=== PATIENT | female | born 1970 | race African-American/Black ===

== ENCOUNTER 2024-06-26 08:23 | Emergency (ER) | payer OTHER, MEDICAID, SELFPAY ==
[2024-06-26 08:25] VITALS: BP 219/100; PULSE 84; RESP 16; TEMP 36.4; O2SAT 100
--- NOTE | 2024-06-26 10:29 | ED_ITS ---
HPI - Female Genitourinary General Chief complaint: Vaginal Bleeding <Ting Gregg PA-C - Last Filed: 06/26/24 10:31> Stated complaint: vag bleeding <Ting Gregg PA-C - Last Filed: 06/26/24 10:31> Time Seen by Provider: 06/26/24 11:20 <Ting Gregg PA-C - Last Filed: 06/26/24 10:31> Focused HPI: 54 y/o F presents to the ED for vaginal bleeding doing this morning. Patient states her periods have been irregular for about 4 months. Her last period was 1 month ago. She states she has had to change her pad/tampon 5 times since bleeding started at 2:00 a.m.. She reports lower abdominal pain. Denies lightheadedness, dizziness, loss of consciousness, chest pain or shortness of breath, dysuria, fever.. She is found to be hypertensive in the ED but denies history of hypertension. Denies symptoms of hypertensive emergency. GENERAL: Well-appearing, well-nourished, and in no acute distress. HEAD: Normocephalic, atraumatic. CHEST: Clear to auscultation. ?No respiratory distress. HEART: Regular rate and rhythm.? NEURO: ?Alert and oriented x3. Patient screened in triage and initial orders placed.? ?Additional care and disposition to be based upon?diagnostic testing and treatment. <Ting Gregg PA-C - Last Filed: 06/26/24 10:31> History of Present Illness HPI Narrative: Agree with the above with the following additions/corrections: [id number] female who is currently perimenopauseal as she will go without menstruating for 3-4 months and then resume. Her OBGyn is here at [facility] but can't recall name. She started with light spotting that became heavy vaginal bleeding last night. Taking Tylenol XS for abdominal pain/cramnping which is 8/10 in severity and occuring intermittently. She had only been noted to be hypertensive previously in the setting of being . Saturating pads/tampons every 3 hours. Sexually active with men (1 partner in past month). No foreign body insertion/sex toys/instrumentation. Denies forceful/vigorous sex. No history of STIs. No dysuria. No prior abnormal PAP smears; last one >2 years ago. <Estephanie Whitt MD - Last Filed: 06/28/24 05:16> Related Data Allergies/Adverse reactions: Allergies Allergy/AdvReac Type Severity Reaction Status Date / Time Penicillins Allergy Mild Jittery Unverified 10/06/08 12:35 hydrocodone Allergy Unknown Verified 10/06/08 12:35 CODEINE (Generic Allergy) Allergy Unknown Y Uncoded 03/10/03 12:32 <Ting Gregg PA-C - Last Filed: 06/26/24 10:31> PMFSH Surgical History Surgical History: Surgical History H/O plastic surgery BBL - [place]ese Butt Lift - gluteal augmentation surgery - approx 2022 in [facility] H/O liposuction of abdomen approx 2022 in [facility] <Ting Gregg PA-C - Last Filed: 06/26/24 10:31> Social History Social History: Social History (Updated 06/28/24 @ 05:09 by Estephanie Whitt MD) Occupation/Education: occupation <Ting Gregg PA-C - Last Filed: 06/26/24 10:31> Exam 2 Const: General: healthy appearing, no acute distress and alert; No diaphoretic or ill appearing <Estephanie Whitt MD - Last Filed: 06/28/24 05:16> Nutritional Appearance: well nourished <Estephanie Whitt MD - Last Filed: 06/28/24 05:16> Orientation/consciousness: patient oriented x3 <Estephanie Whitt MD - Last Filed: 06/28/24 05:16> Limitations: no limitations <Estephanie Whitt MD - Last Filed: 06/28/24 05:16> HENMT: Head: normal to inspection <Estephanie Whitt MD - Last Filed: 06/28/24 05:16> Ears: external ears normal <Estephanie Whitt MD - Last Filed: 06/28/24 05:16> Face and sinus: normal facial exam <MD Devang Odom Last Filed: 06/28/24 05:16> Other: gross auditory acuity intact <Estephanie Whitt MD - Last Filed: 06/28/24 05:16> Eyes: Conjunctivae: conjunctivae normal <MD Devang Odom Last Filed: 06/28/24 05:16> Direct Ophthalmoscopy: no photophobia <Estephanie Whitt MD - Last Filed: 06/28/24 05:16> Neck: Neck: normal visual inspection and no meningeal signs <MD Devang Odom Last Filed: 06/28/24 05:16> Resp: Effort & Inspection: normal respiratory effort, not labored, no retractions, not tachypneic and no use of accessory muscles <MD Devang Odom Last Filed: 06/28/24 05:16> Cardio: Rate: regular rate <Estephanie Whitt MD - Last Filed: 06/28/24 05:16> GI: Inspection: non-distended <Estephanie Whitt MD - Last Filed: 06/28/24 05:16> GI Palp: Yes Soft to palpation, No Tenderness to palpation present (GI), No Guarding due to palpation present (GI) and No Rigid due to palpation < MD Devang Odom Last Filed: 06/28/24 05:16> Other: mild suprapubic TTP <Estephanie Whitt MD - Last Filed: 06/28/24 05:16> : External Female Exam: normal external appearance <MD Devang Odom Last Filed: 06/28/24 05:16> Speculum Exam - Vagina: normal appearance of the vagina and vaginal bleeding (some pooling in fornices) <Estephanie Whitt MD - Last Filed: 06/28/24 05:16> Bimanual exam- vagina & uterus: no cervical motion tenderness <MD Devang Odom Last Filed: 06/28/24 05:16> Bimanual Exam- Adnexa, other: no masses <Estephanie Whitt MD - Last Filed: 06/28/24 05:16> OB/external & speculum: no herpetic lesions <Estephanie Whitt MD - Last Filed: 06/28/24 05:16> Skin: General skin exam: normal color, no jaundice and no pallor < Estephanie Whitt MD - Last Filed: 06/28/24 05:16> Neuro: General: patient oriented x3, moves all extremities and no meningeal signs <Estephanie Whitt MD - Last Filed: 06/28/24 05:16> Speech: normal speech <Estephanie Whitt MD - Last Filed: 06/28/24 05:16> Extrem: General: normal to inspection and no pedal edema <Estephanie Whitt MD - Last Filed: 06/28/24 05:16> Psych: Appearance: grossly normal, well kempt and not disheveled < Estephanie Whitt MD - Last Filed: 06/28/24 05:16> Mental Status: mental status grossly normal <Estephanie Whitt MD - Last Filed: 06/28/24 05:16> Affect: normal affect <Estephanie Whitt MD - Last Filed: 06/28/24 05:16> Attitude: cooperative <Estephanie Whitt MD - Last Filed: 06/28/24 05:16> Course Vital Signs Vital signs: Vital Signs Temperature 97.6 F 06/26/24 08:25 Pulse Rate 84 06/26/24 08:25 Respiratory Rate 16 06/26/24 08:25 Blood Pressure 219/100 H 06/26/24 08:25 Pulse Oximetry 100 06/26/24 08:25 Temperature 97.8 F 06/26/24 14:45 Pulse Rate 61 06/26/24 14:45 Respiratory Rate 16 06/26/24 14:45 Blood Pressure 160/85 H 06/26/24 14:45 Pulse Oximetry 100 06/26/24 14:45 <Ting Gregg PA-C - Last Filed: 06/26/24 10:31> Vital Signs Temperature 97.6 F 06/26/24 08:25 Pulse Rate 84 06/26/24 08:25 Respiratory Rate 16 06/26/24 08:25 Blood Pressure 219/100 H 06/26/24 08:25 Pulse Oximetry 100 06/26/24 08:25 Temperature 97.8 F 06/26/24 14:45 Pulse Rate 61 06/26/24 14:45 Respiratory Rate 16 06/26/24 14:45 Blood Pressure 160/85 H 06/26/24 14:45 Pulse Oximetry 100 06/26/24 14:45 <Estephanie Whitt MD - Last Filed: 06/28/24 05:16> MDM - Female Genitourinary MDM Narrative Medical decision making narrative: Patient presents with abnormal vaginal bleeding. She is perimenopausal. In the emergency department she is afebrile with vital signs notable for hypertension. Patient is not anemic. The patient's bleeding is thought to be secondary to fibroids or other non- emergent cause of abnormal uterine bleeding given benign pelvic exam. Unlikely hemorrhagic cystitis: Urinalysis normal except for blood and blood visualized in vagina on pelvic exam Unlikely thyroid dysfunction; tsh normal Unlikely infection : no recent instrumentation, non toxic appearance, no tenderness on exam or fever Unlikely coagulopathy: plt normal, no other bleeding Unlikely traumatic: no reported history hard sex/instrumentation/foreign body Unlikely PID: 1 sexual partner, no hx STIs; STI testing negative today. Plan discharge home with return precautions and advised follow up with ObGYn. Also advised follow up with PCP for re-check of blood pressure to asses hypertension. <Estephanie Whitt MD - Last Filed: 06/28/24 05:16> Lab Data Attestation: I reviewed the patient's lab results. <Estephanie Whitt MD - Last Filed: 06/28/24 05:16> Result diagrams: 06/26/24 11:11 06/26/24 11:11 <Ting Gregg PA-C - Last Filed: 06/26/24 10:31> Labs: Lab Results 06/26/24 06/26/24 06/26/24 Range/Units 11:11 11:29 13:00 WBC 7.3 (4.5-10.0) K/mm3 RBC 4.68 (4.2-5.4) M/mm3 Hgb 14.2 (12.0-15.0) g/dL Hct 41.9 (37.0-47.0) % MCV 89.5 (80-100) fl MCH 30.3 (26-34) pg MCHC 33.9 (32-36) g/dl RDW 12.0 (11.5-14.5) % Plt Count 215 (150-375) k/mm3 MPV 10.6 H (7.4-10.4) fl Immature Gran % (Auto) 0.4 (0-0.5) % Neut % (Auto) 61.9 (45.5-73.1) % Lymph % (Auto) 29.0 (18.3-44.2) % Letcher % (Auto) 5.0 (2.6-8.5) % Eos % (Auto) 3.4 (0-4.4) % Baso % (Auto) 0.3 (0.2-1.2) % Lymph # (Auto) 2.13 (0.9-3.2) K/mm3 Letcher # (Auto) 0.4 (0.1-0.6) K/mm3 Eos # (Auto) 0.3 (0-0.3) K/mm3 Baso # (Auto) 0.0 (0.0-0.1) K/mm3 Abs Immat Gran (auto) 0.03 (0.00-0.031) K/mm3 Absolute Neuts (auto) 4.5 (1.3-6.7) K/mm3 Absolute Nucleated RBC 0.000 (0.0-0.012) K/mm3 Nucleated RBC % 0.0 (0.0-0.2) % PT 13.3 (11.1-14.7) Seconds INR 1.0 APTT 27.4 (22.3-36.8) Seconds Sodium 139 (137-145) mmol/L Potassium 4.0 (3.4-5.0) mmol/L Chloride 110 H (98-107) mmol/L Carbon Dioxide 27 (22-30) mmol/L Anion Gap 2 L (4-12) mmol/L BUN 11 (7-17) mg/dL Creatinine 0.80 (0.7-1.0) mg/dL Estim Creat Clear Calc 65 ml/min Estimated GFR > 60 (59 - ) Glucose 119 H (65-110) mg/dL Calcium 9.1 (8.4-10.2) mg/dL Total Bilirubin 0.6 (0.2-1.3) mg/dL AST 23 (14-36) U/L ALT 19 (6-35) U/L Alkaline Phosphatase 55 (38-126) U/L Total Protein 8.0 (6.3-8.2) g/dL Albumin 4.4 (3.5-5.1) g/dL TSH 2.120 (0.465-4.680) uIU/mL Urine Color Red H (Yellow) Urine Appearance Clear (Clear) Urine pH 5.5 (5.0-9.0) Ur Specific [place] 1.011 (1.001-1.035) Urine Protein Trace (Negative) mg/dL Urine Glucose (UA) Negative (Negative) mg/dL Urine Ketones Negative (Negative) mg/dL Ur Blood (Man) 3+ H (Negative) Urine Nitrate Negative (Negative) Urine Bilirubin Negative (Negative) Urine Urobilinogen 0.2 (<2.0) mg/dL Leukocyte Esterase Rfl Trace H (Negative) KAI/UL Urine RBC >100 H (0-2) /hpf Urine WBC 6-10 H (0-3) /hpf Ur Squamous Epith Cells None seen (Few) /hpf Urine Bacteria None seen /hpf Urine Casts 0-2 POC Urine HCG, Qual Negative (Negative) C. trachomatis (PCR) Not detected (NOT DETECTE) N. gonorrhoeae (PCR) Not detected (NOT DETECTE) T. vaginalis (PCR) Not detected (NOT DETECTE) <Ting Gregg PA-C - Last Filed: 06/26/24 10:31> Lab Results 06/26/24 06/26/24 06/26/24 Range/Units 11:11 11:29 13:00 WBC 7.3 (4.5-10.0) K/mm3 RBC 4.68 (4.2-5.4) M/mm3 Hgb 14.2 (12.0-15.0) g/dL Hct 41.9 (37.0-47.0) % MCV 89.5 (80-100) fl MCH 30.3 (26-34) pg MCHC 33.9 (32-36) g/dl RDW 12.0 (11.5-14.5) % Plt Count 215 (150-375) k/mm3 MPV 10.6 H (7.4-10.4) fl Immature Gran % (Auto) 0.4 (0-0.5) % Neut % (Auto) 61.9 (45.5-73.1) % Lymph % (Auto) 29.0 (18.3-44.2) % Letcher % (Auto) 5.0 (2.6-8.5) % Eos % (Auto) 3.4 (0-4.4) % Baso % (Auto) 0.3 (0.2-1.2) % Lymph # (Auto) 2.13 (0.9-3.2) K/mm3 Letcher # (Auto) 0.4 (0.1-0.6) K/mm3 Eos # (Auto) 0.3 (0-0.3) K/mm3 Baso # (Auto) 0.0 (0.0-0.1) K/mm3 Abs Immat Gran (auto) 0.03 (0.00-0.031) K/mm3 Absolute Neuts (auto) 4.5 (1.3-6.7) K/mm3 Absolute Nucleated RBC 0.000 (0.0-0.012) K/mm3 Nucleated RBC % 0.0 (0.0-0.2) % PT 13.3 (11.1-14.7) Seconds INR 1.0 APTT 27.4 (22.3-36.8) Seconds Sodium 139 (137-145) mmol/L Potassium 4.0 (3.4-5.0) mmol/L Chloride 110 H (98-107) mmol/L Carbon Dioxide 27 (22-30) mmol/L Anion Gap 2 L (4-12) mmol/L BUN 11 (7-17) mg/dL Creatinine 0.80 (0.7-1.0) mg/dL Estim Creat Clear Calc 65 ml/min Estimated GFR > 60 (59 - ) Glucose 119 H (65-110) mg/dL Calcium 9.1 (8.4-10.2) mg/dL Total Bilirubin 0.6 (0.2-1.3) mg/dL AST 23 (14-36) U/L ALT 19 (6-35) U/L Alkaline Phosphatase 55 (38-126) U/L Total Protein 8.0 (6.3-8.2) g/dL Albumin 4.4 (3.5-5.1) g/dL TSH 2.120 (0.465-4.680) uIU/mL Urine Color Red H (Yellow) Urine Appearance Clear (Clear) Urine pH 5.5 (5.0-9.0) Ur Specific [place] 1.011 (1.001-1.035) Urine Protein Trace (Negative) mg/dL Urine Glucose (UA) Negative (Negative) mg/dL Urine Ketones Negative (Negative) mg/dL Ur Blood (Man) 3+ H (Negative) Urine Nitrate Negative (Negative) Urine Bilirubin Negative (Negative) Urine Urobilinogen 0.2 (<2.0) mg/dL Leukocyte Esterase Rfl Trace H (Negative) KAI/UL Urine RBC >100 H (0-2) /hpf Urine WBC 6-10 H (0-3) /hpf Ur Squamous Epith Cells None seen (Few) /hpf Urine Bacteria None seen /hpf Urine Casts 0-2 POC Urine HCG, Qual Negative (Negative) C. trachomatis (PCR) Not detected (NOT DETECTE) N. gonorrhoeae (PCR) Not detected (NOT DETECTE) T. vaginalis (PCR) Not detected (NOT DETECTE) <Estephanie Whitt MD - Last Filed: 06/28/24 05:16> Discharge Plan Discharge Clinical Impression: Perimenopausal menorrhagia, Hypertension, Dysmenorrhea <Ting Gregg PA-C - Last Filed: 06/26/24 10:31> Patient Disposition: Home, Self-Care <Ting Gregg PA-C - Last Filed: 06/26/24 10:31> Condition: Stable <KASIA Lees Last Filed: 06/26/24 10:31> Instructions: Antibiotic Form, Dysmenorrhea (ED), Menorrhagia (ED), Hypertension (ED) <Ting Gregg PA-C - Last Filed: 06/26/24 10:31> Additional Instructions: Your workup did not identify a clear cause of your symptoms. You do not have evidence of urinary tract infection, thyroid dysfunction, or sexually transmitted infection. You are not anemic (your red blood cells are ok) currently. A repeat CBC or H/H (labs that measure this) may be recommended to be repeated if bleeding continues. Follow up with your ObGyn. If you are having difficulty reestablishing with them, the name of a doctor is listed below. Return to the emergency department with any new or worsening symptoms such as saturating a pad an hour for 2-3 hours, fainting/nearly passing out, shortness of breath. You are also found to have a high blood pressure but not in the setting of . Follow-up with your primary care physician to check this again to see if you need to be started on blood pressure medication. If you do not have 1 the name of doctors listed below. It is safe to take 4000 mg per day of acetaminophen/Tylenol. <Ting Gregg PA-C - Last Filed: 06/26/24 10:31> Patient Language: Hungarian <Ting Gregg PA-C - Last Filed: 06/26/24 10:31> Prescriptions: New acetaminophen 500 mg capsule 1,000 mg PO Q6H PRN (Reason: pain) Qty: 30 0RF <Ting Gregg PA-C - Last Filed: 06/26/24 10:31> Follow-up/Referrals: Hemal Chavez MD [Physician] - (INTERACTIVE MEDIA MARKETING SPECIALIST) PHYSICIAN,WALLBOARD WORKER [Non-Staff] - René Wiggins MD [Physician] - (Family practice) <Ting Gregg PA-C - Last Filed: 06/26/24 10:31> Stand Alone Forms: Work/School Release IP <Ting Gregg PA-C - Last Filed: 06/26/24 10:31> Time of Disposition: 15:03 <Ting Gregg PA-C - Last Filed: 06/26/24 10:31> 15:03 <Estephanie Whitt MD - Last Filed: 06/28/24 05:16>
[2024-06-26 10:57] VITALS: BP 194/95; O2SAT 100
[2024-06-26 11:31] VITALS: O2SAT 100
[2024-06-26 11:31] LABS: BEDSIDEPREGUCG Negative (Negative)
[2024-06-26 11:44] LABS: Basophils Percent Auto 0.3 % (0.2-1.2); Eosinophils Absolute Auto 0.3 K/mm3 (0-0.3); Eosinophils Percent Auto 3.4 % (0-4.4); Hematocrit 41.9 % (37.0-47.0); Hemoglobin 14.2 g/dL (12.0-15.0); Immature Granulocyte Absolute 0.03 K/mm3 (0.00-0.031); Immature Granulocyte Percent A 0.4 % (0-0.5); Lymphocytes Absolute Auto 2.13 K/mm3 (0.9-3.2); Mean Corpuscular HGB Conc 33.9 g/dl (32-36); Mean Corpuscular Hemoglobin 30.3 pg (26-34); Mean Corpuscular Volume 89.5 fl (80-100); Mean Platelet Volume 10.6 fl (7.4-10.4); Monocytes Absolute Auto 0.4 K/mm3 (0.1-0.6); Neutrophils Absolute Auto 4.5 K/mm3 (1.3-6.7); Neutrophils Percent Auto 61.9 % (45.5-73.1); Platelet Count Result 215 k/mm3 (150-375); Red Blood Count 4.68 M/mm3 (4.2-5.4); White Blood Count 7.3 K/mm3 (4.5-10.0)
[2024-06-26 11:49] LABS: Bacteria Urine None Seen /hpf; Non Pathogenic Casts 0-2; RBC Urine >100 /hpf (0-2); Squamous Epithelial Cell Urine None Seen /hpf (Few)
[2024-06-26 11:50] VITALS: O2SAT 100
[2024-06-26 11:56] LABS: Prothrombin Time 13.3 Seconds (11.1-14.7)
[2024-06-26 11:57] LABS: Partial Thromboplastin Time 27.4 Seconds (22.3-36.8)
[2024-06-26 12:01] LABS: Alanine Aminotransferase 19 U/L (6-35); Albumin Level 4.4 g/dL (3.5-5.1); Alkaline Phosphatase 55 U/L (38-126); Anion Gap 2 mmol/L (4-12); Aspartate Amino Transferase 23 U/L (14-36); Bilirubin,Total 0.6 mg/dL (0.2-1.3); Blood Urea Nitrogen 11 mg/dL (7-17); Calcium 9.1 mg/dL (8.4-10.2); Carbon Dioxide 27 mmol/L (22-30); Chloride 110 mmol/L (98-107); Estimated CRCL calculation 65 ml/min; Estimated Glomerular Filt Rate > 60; Glucose 119 mg/dL (65-110); Sodium 139 mmol/L (137-145)
[2024-06-26 12:04] LABS: Add Urine Microscopic? YES; Appearance Urine Clear (Clear); Bilirubin Urine Negative (Negative); Blood Urine 3+ (Negative); Color Urine Red (Yellow); Glucose Urine UA Negative (Negative); Ketones Urine Negative (Negative); Leukocyte Esterase Ur Trace LEU/UL (Negative); Nitrate Urine Negative (Negative); Protein Urine Trace mg/dL (Negative); Specific Grav Ur 1.011 (1.001-1.035); Urobilinogen Urine 0.2 mg/dL (<2.0); pH Urine 5.5 (5.0-9.0)
[2024-06-26 13:00] VITALS: BP 171/76; PULSE 59; RESP 16; O2SAT 100
[2024-06-26] MEDS: ACETAMINOPHEN 500 MG TABLET 1000 MG PO (13:05)
[2024-06-26 14:31] LABS: Trichomonas Vag PCR NOT DETECTED (NOT DETECTE)
--- NOTE | 2024-06-26 14:32 | PC.NURSE ---
Patient asking about prognosis-spoke with Dr Whitt-she will review tests. Patient made aware.
[2024-06-26 14:45] VITALS: BP 160/85; PULSE 61; RESP 16; TEMP 36.6; O2SAT 100
[2024-06-26 14:56] LABS: Chlamydia trachomatis NOT DETECTED (NOT DETECTE); Neisseria gonorrhoeae PCR NOT DETECTED (NOT DETECTE)
== END 2024-06-26 15:19 | disposition home or self-care (01) ==
PROVIDERS: Physician Assistant; Emergency Provider Student in an Organized Health Care Education/Training Program
DX: N92.4 Excessive bleeding in the premenopausal period (principal); I10 Essential (primary) hypertension; N94.6 Dysmenorrhea, unspecified; R82.998 Other abnormal findings in urine
CPT/HCPCS: 36415; 80053; 81001; 81025; 84443; 85025; 85610; 85730; 87086; 87491; 87591; 87661; 99284; A9270